=== PATIENT | female | born 1945 | race African-American/Black ===

== ENCOUNTER → 2024-09-03 | Outpatient (CLI) | payer OTHER ==
[~2024-09-03] VITALS: Ht 170.2 cm; Wt 52.6 kg
[2024-09-03] MEDS: MIDAZOLAM HCL 2MG/2ML 2ml VIAL (1mg/ml) ONE (15:05)
[2024-09-03] MEDS: fentaNYL CITRATE 100 MCG/2 ML VL ONE (15:05)
[2024-09-03] MEDS: LIDOCAINE 2%HCL (LOCAL ANESTH.) INJ 20ML MDV ONE (15:05)
[2024-09-03] MEDS: IODIXANOL 320MG/ML 100ML BTL IV ONE (16:10)
[2024-09-03 16:30] VITALS: BP 131/69; PULSE 78; RESP 14; TEMP 98.7; O2SAT 97
[2024-09-03 16:45] VITALS: BP 136/68; PULSE 80; RESP 14; O2SAT 98
[2024-09-03 17:00] VITALS: BP 150/71; PULSE 85; RESP 15; O2SAT 98
--- NOTE | 2024-09-03 18:41 | DVH ---
US ULTRA GUIDED ABCESS DRAINAGE, HISTORY: Large liver cyst and abdominal pain. PROCEDURE: An informed consent was obtained. The patient was placed supine on the interventional tabl e. The large hepatic cyst was localized with ultrasound and the overlying skin prepped with chlorhex idine which was allowed to dry and draped in the usual sterile fashion. Time out was performed and in filtrated with 1% Xylocaine. With US guidance, 19-gauge centesis needle catheter was advanced into th e hepatic cyst. Small amount was aspirated for appropriate microbiology/cytology/microbiology and cyt ology analysis. A 0.035 wire was advanced into the fluid collection. After serial dilatation, a 8.5 F rench multipurpose pigtail catheter was placed into the collection. Approximately 20 cc of serous flu id was aspirated. The drain was sutured at the skin surface and connected to suction drainage. No imm ediate complication was identified. FINDINGS: Limited US scan of through the abdomen demonstrates a large hepatic cyst with internal debr is. Collection appears simple with debris. Post procedure scan shows pigtail drain within the collect ion. IMPRESSION: US and fluoroscopically guided placement of 8.5 [place] pigtail drain into a large hepatic cyst. PLAN: Continue to connect to suction bag. Monitor output daily. When daily output is less then 5 mL p er day, consider for removal.
== END | disposition home or self-care (01) ==
LOC: XYW 14:08
PROVIDERS: ATTEND Radiology Diagnostic Radiology
DX: E87.5 Hyperkalemia (principal); K76.89 Other specified diseases of liver; R10.9 Unspecified abdominal pain
CPT/HCPCS: 49405; 87205; 88104; 88305; C1729; C1769; J1644; J7030; Q9967; 50432; 75989; 99152; J2250